=== PATIENT | male | born 1985 | race Caucasian/White ===

== ENCOUNTER 2018-02-27 11:06 | Emergency (ER) | payer OTHER, SELFPAY ==
[2018-02-27 11:12] VITALS: BP 140/90; PULSE 68; RESP 70; O2SAT 100; BMI 40.6
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
[2018-02-27 13:16] VITALS: BP 146/102; PULSE 82; RESP 16; O2SAT 99
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
== END 2018-02-27 13:27 | disposition home or self-care (01) ==
PROVIDERS: Emergency Provider Emergency Medicine
DX: M54.5 Low back pain (principal); R07.89 Other chest pain; V49.9XXA Car occupant (driver) (passenger) injured in unspecified traffic accident, initial encounter
CPT/HCPCS: 71046; 93005; 93010; 99282; 99284

== ENCOUNTER → 2018-12-13 09:25 | Outpatient (CLI) | payer OTHER, SELFPAY ==
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
--- NOTE | 2018-12-13 09:27 | DI.MRI.S_ITS ---
PROCEDURE: MR THORACIC SPINE WO CON INDICATIONS: Thoracic radiculopathy TECHNIQUE: Noncontrast sagittal T1 spine echo and T2 fast spin echo, sagittal STIR, axial T1 and T2 fast spin echo through the thoracic spine. COMPARISON: [facility], [place], [place] BONE SCAN WHOLE BODY, 12/13/2018, 12:27. FINDINGS: Image quality: Excellent. Alignment and Curvature: Focal kyphosis is present at T8-9 and T9-10. Bone Marrow: Marrow is of normal overall signal. No acute vertebral body compression fractures. Spinal Cord: Visualized spinal cord is normal in size and signal. Paraspinous Soft Tissues: No paravertebral masses. Miscellaneous: On axial images, foramina appear widely patent at all scanned levels. Prominent multilevel disc desiccation is present. Mild right posterior lateral/subarticular recess protrusion is present at T3-4, disc bulge at T8-9, T9-10. There is a mild appearance of spinal stenosis at T8-9 and T9-10 secondary to kyphosis. IMPRESSION: 1. Upper level disc bulges as above. 2. Mild spinal stenosis is present at T8-9 and T9-10 secondary to focal kyphosis. Dictated by: Leah Esparza M.D. on 12/13/2018 at 17:13 Approved by: Leah Esparza M.D. on 12/13/2018 at 17:16
== END ==
PROVIDERS: PCP Family Medicine; Visit Provider Physical Medicine & Rehabilitation
DX: M51.14 Intervertebral disc disorders with radiculopathy, thoracic region (principal); R07.89 Other chest pain; M40.204 Unspecified kyphosis, thoracic region; M48.04 Spinal stenosis, thoracic region; M54.5 Low back pain; Z87.81 Personal history of (healed) traumatic fracture
CPT/HCPCS: 72146; 78306; A9503

== ENCOUNTER 2019-02-17 12:14 | Outpatient (CLI) | payer OTHER, BC, SELFPAY ==
[2019-02-17] VITALS (10 sets, daily range): BP systolic 118–138; BP diastolic 44–94; PULSE 61–77; RESP 16–18; TEMP 36.8; O2SAT 96–99
--- NOTE | 2019-02-17 12:16 | DI.RAD.S_ITS ---
PROCEDURE: PAIN C/T INTERLAMINAR INJECT INDICATIONS: RADICULOPATHY FINDINGS: Fluoroscopic spot filming was performed to verify placement of spinal needles at the T3-T4 level(s), as labeled on the films. Appropriate location(s) of the needle tip(s) was confirmed by injection of iodinated contrast. IMPRESSION: Fluoroscopy for pain management. Dictated by: Fe Roberts M.D. on 02/17/2019 at 14:16 Approved by: Fe Roberts M.D. on 02/17/2019 at 14:16
[2019-02-17] MEDS: fentaNYL 100 MCG/2 ML INJ 50 MCG IV (13:27)
[2019-02-17] MEDS: MIDAZOLAM 5 MG/5 ML VIAL IV (13:27)
[2019-02-17] MEDS: IOPAMIDOL 15 ML VIAL 3 ML INJ (13:36)
--- NOTE | 2019-02-17 13:43 | PC.NURSE ---
pt tolerated procedure well. Pt able to get off the table with standby assist. Transferred pt via wheelchair to pre procedure room for continued monitoring with Kimi BARRERA.
[2019-02-17] MEDS: DEXAMETHASONE 10 MG/ML VIAL 30 MG IV (13:45)
--- NOTE | 2019-02-17 13:50 | P.PCN_ITS ---
Procedures Date/Time Date of procedure: 02/17/19 Time of procedure: 13:47 General Procedure description: Preop diagnosis: Thoracic stenosis with HNP Postprocedure diagnosis: Thoracic stenosis with HNP Physician: Steffen Bird D.O. Indications: Ayad is referred by Dr. Harrison for treatment of thoracic DDD/DJD with radiculopathy Description of procedure: Fluoroscopic guided, contrast controlled T3/4 translaminar epidural steroid inj ection with conscious sedation. Following review of allergy review potential side effects and complications, including, but not necessarily limited to, infection, allergic reaction, local tissue breakdown, temporary as well as permanent nerve injury, stroke, paralysis and possible , the patient indicated that they understood and agreed to proceed. An informed consent document was signed by the patient, witnessed by the nurse, and placed in the patient's chart. Additionally other treatment options including modalities, medications and physical therapy were reviewed with the patient. After review of previous anaesthesic history and IV conscious sedation the patient was deemed safe to proceed with todays procedure with IV conscious sedation as ASA class II designation. Safety time-out was performed to confirm patient ID, procedure to be performed and site of procedure. IV sedation was accomplished with a combination of 3mg of Versed and 50mcg of Fentanyl administered by the RN after DO order, titrated to patient comfort during the course of the procedure while the patient remained responsive to all verbal commands In the prone position, following sterile prep and drape of the thoracic region the T3/4 translaminar space was identified fluoroscopically. The skin was anesthetized via 25 gauge 20 mm sheath with 1% lidocaine solution. At this point a 20 gauge epidural needle was atraumatically introduced and advanced under fluoroscopic guidance into the region of the T3/4 translaminar space depth was confirmed on lateral view. Radiographic data, including multiple fluoroscopic views of the thoracic spine, reveals spinal needle at the T3/4 translaminar space. Lateral views then showed the placement of the needle in the epidural space. Subsequent view show contrast material flowing superiorly and inferiorly in the epidural space. No vascular or intrathecal uptake is observed. At this point using loss of resistance technique with saline and the epidural space was entered. This was confirmed followed negative aspiration and injection of approximately 1.5 cc of Isovue 200 showed excellent epidural flow without vascular or intrathecal uptake. At this point, 1 cc of 1% lidocaine solution was admitted as a test dose and the patient was observed for an appropriate period of time without signs or symptoms of complications, including abdominal pain, shortness of breath, bilateral upper and lower extremity weakness, nausea and vomiting, prior to steroid injection. Subsequently, 3cc or 30mg of dexamethasone was then injected without incident. The patient tolerated the procedure well without signs of complications and subsequently was transferred to the recovery room for further monitoring. The patient was then transferred to the recovery area with their observed for an appropriate time after the injection. Patient reported a VAS score of 7 prior to the procedure and postprocedure VAS of 2. Total fluoroscopy time: 56.3 sec Total conscious sedation time: 24 min Steffen Bird D.O. Complications: none
--- NOTE | 2019-02-17 13:56 | PC.NURSE ---
ACCEPTED CARE OF PT IN POST PROC AREA IN STABLE CONDITION.
== END 2019-02-17 14:12 | disposition home or self-care (01) ==
LOC: RAD 12:15
PROVIDERS: PCP Family Medicine; Visit Provider Physical Medicine & Rehabilitation
DX: M54.14 Radiculopathy, thoracic region (principal); M51.24 Other intervertebral disc displacement, thoracic region
CPT/HCPCS: 62321; 99152; J0702; J1100; J2250; J3010

== ENCOUNTER → 2019-08-09 09:24 | Outpatient (CLI) | payer OTHER, BC, SELFPAY ==
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
== END ==
PROVIDERS: PCP Family Medicine; Visit Provider Physical Medicine & Rehabilitation
DX: M54.5 Low back pain (principal); M48.061 Spinal stenosis, lumbar region without neurogenic claudication; M51.36 Other intervertebral disc degeneration, lumbar region; E88.2 Lipomatosis, not elsewhere classified
CPT/HCPCS: 72148

== ENCOUNTER 2019-10-13 16:00 | Outpatient (RCR) | payer OTHER, BC, SELFPAY ==
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
--- NOTE | 2019-07-26 09:49 | PT-OP ANOTE ---
Called pt via phone today and he stated he forgot that he has an appointment today. Pt reports he has been feeling better and compliant to HEP. Would like to cont therapy to improve his mobility and trunk strength.
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
== END 2020-04-03 10:46 ==
LOC: PHYS 16:00
PROVIDERS: PCP Family Medicine; Visit Provider Registered Nurse
DX: M54.14 Radiculopathy, thoracic region (principal); M54.5 Low back pain; V89.2XXA Person injured in unspecified motor-vehicle accident, traffic, initial encounter
CPT/HCPCS: 97110; 97140; 97161; 97535

== ENCOUNTER → 2020-06-06 07:35 | Outpatient (CLI) | payer BC, SELFPAY ==
--- NOTE | 2020-06-06 07:36 | DI.RAD.S_ITS ---
PROCEDURE: XR LUMBAR SPINE MIN 4V INDICATIONS: low back pain Five COMPARISON: None. FINDINGS: Bones: 5 nonrib-bearing vertebrae are present. There is normal bony alignment. No vertebral body compression fractures. No suspicious bony lesions. There is generally mild degenerative disc disease along the thoracolumbar junction and lumbosacral spine. No subluxation. Facet osteoarthritis becomes progressively more prominent from L3 inferiorly and is most pronounced at L5-S1 where significant spinal and foraminal stenosis would be suspected. Soft tissues: Overlying bowel gas pattern is normal. No suspicious soft tissue calcifications. Oblique images: No pars defects. IMPRESSION: Progressively greater facet osteoarthritis from L3 through S1. No compression fracture found. Suspect mild spinal and foraminal stenosis at L5-S1. Dictated by: Fabiano Peters M.D. on 06/06/2020 at 9:58 Approved by: Fabiano Peters M.D. on 06/06/2020 at 10:00
== END ==
PROVIDERS: PCP Family Medicine; Referring Provider Family Medicine; Visit Provider Physical Medicine & Rehabilitation
DX: M54.5 Low back pain (principal); M47.816 Spondylosis without myelopathy or radiculopathy, lumbar region; M47.817 Spondylosis without myelopathy or radiculopathy, lumbosacral region
CPT/HCPCS: 72110